=== PATIENT | female | born 1995 | race Caucasian/White ===

== ENCOUNTER 2017-06-05 02:14 | Inpatient (IN) | payer OTHER ==
[2017-06-05 02:43] VITALS: BMI 21.7
[2017-06-05] MEDS ORDERED: Promethazine HCl 25 MG/ML VIAL IM PRN (02:56)
[2017-06-05] MEDS ORDERED: Zolpidem Tartrate 5 MG TAB PO PRN (02:56)
[2017-06-05] MEDS ORDERED: Acetaminophen 500 MG TAB PO PRN (02:56)
[2017-06-05] MEDS ORDERED: Diabetic Tussin 200 MG/10 ML UDCUP PO PRN (03:12)
--- NOTE | 2017-06-05 03:16 | PDOC.LDHP ---
Labor and Delivery H&P Chief complaint: loss of fluid HPI: 21 y/o at 30w1d, patient of Dr. Garza, presents with large gush and continuing leakage of fluid starting at 0130. Denies VB, ctx, or decreased FM. Has had a cold with a cough but is not SOB. ROS neg for HEENT, CV, pulm, GI, , neuro, psych, skin, musculoskeletal, or constitutional symptoms other than mentioned above. OB History Details: 1 prior term in August 2016. Current complications: none Past Medical History: None Current medications: pre- vitamins Previous surgical history: none Allergies/Adverse Reactions: Allergies Allergy/AdvReac Type Severity Reaction Status Date / Time No Known Allergies Allergy Verified 06/05/17 02:35 Social history: none - Physical Exam Vital signs reviewed and normal: yes General: NAD, resting Heart: RRR Lungs: CTAB Abdomen: NTTP Extremeties: no edema FHT: category 2 (130s, mod variability, + accels, occasional variable decels) [place] contractions every: occasional - Vaginal Exam cm dilated: 0 (visually) Effacement: 0% Station: -3 - Assessment L&D Assessment: premature rupture of membranes - Plan Plan: admit to L&D, GBS antibiotic prophylaxis, informed consent obtained -: -Celestone x 2 for lung maturity -GBS prophylaxis - Received Azithromycin (erythromycin unavailable. Amp for 48 hours, then switch to oral Amoxicillin for 5 days. -Magnesium sulfate for neuro protection if threatened labor -Robitussin for cough - ultrasound for EFW, GERMÁN, position -Neonatology consult Expectant management at this time. Dr. Garza notified.
[2017-06-05] MEDS: Betamet Acet/Betamet Na Ph 30 MG/5 ML VIAL IM SCH (03:36)
[2017-06-05] MEDS ORDERED: Azithromycin 250 MG TAB PO SCH (03:45)
[2017-06-05 04:18] LABS: #Eosinphils 0.1 thou/uL (0.0-0.7); #Lymphocytes 1.2 thou/uL (1.20-3.40); #Monocytes 0.5 thou/uL (0.11-0.59); #Neutrophils 4.2 thou/uL (1.40-6.50); %Basophils 0.2 % (0.0-1.0); %Eosinophils 1.2 % (0.0-10.0); %Lymphocytes 20.6 % (21.0-51.0); %Monocytes 7.9 % (0.0-10.0); %Neutrophils 70.1 % (42.0-75.0); Hemoglobin 11.2 g/dL (12.0-16.0); Mean Corpuscular HGB CONC 32.9 g/dL (32.0-36.0); Mean Corpuscular Hemoglobin 30.2 pg (27.0-31.0); Mean Corpuscular Volume 91.8 fl (81.0-99.0); Mean Platelet Volume 8.5 fL (7.4-10.4); Platelet Count 116 thou/uL (130-400); RBC Distribution Width 11.1 % (11.5-14.5)
[2017-06-05 04:38] LABS: HBSAg Index 0.21 S/CO (0-0.99); Hep B Surf Ag Non-Reactive S/CO (NonReactive); Syphilis Antibody Nonreactive (Nonreactive); Syphilis Antibody Index 0.06 S/CO (<1.00 Non-Reactive)
[2017-06-05] MEDS ORDERED: ERYTHROMYCIN IVPB SCH ×4 (06:00)
[2017-06-05] MEDS: AMPICILLIN SLOW IVP SCH ×3 (06:24→19:14)
[2017-06-05] MEDS: Lactated Ringer's 1,000 ML IV SCH ×2 (07:52→15:55)
--- NOTE | 2017-06-05 09:06 | ULT ---
PRELIMINARY REPORT/[facility]/EMERGENCY AFTER HOURS PROCEDURE: EXAM: US Uterus, Limited EXAM DATE/TIME: Exam ordered 06/05/2017 4:01 AM CLINICAL HISTORY: 21 years old, female; Signs and symptoms; Lmp or gestational age (in weeks): 30wks; Other: Prom; Preg nant TECHNIQUE: Real-time ultrasound of the maternal uterus (limited) with image documentation. COMPARISON: No relevant prior studies available. FINDINGS: Fetus: There is a live intrauterine with estimated gestational age of 29 weeks. Estimated f etal weight is 2 lbs. 10 oz. Please see the final report for complete description of anatomy. Position: The fetus is in breech position. motion is present. Heart rate: heart rate measures approximately 143 beats per minute. Placenta: Normal placenta is seen posteriorly. No abruption. Amniotic fluid: There is decreased amniotic fluid measuring 7.2 cm. IMPRESSION: Amniotic fluid index of 7.2 cm which is somewhat low. Thank you for allowing us to participate in the care of your patient. Dictated and Authenticated by: Rock Valero MD 06/05/2017 6:24 AM Central Time ([place] & [place]) FINAL REPORT EMERGENCY AFTER HOURS STUDY ULTRASOUND OBSTETRICAL COMPLETE: DATE: 06/05/17. TIME: 4:22 a.m. HISTORY: A 21-year-old female in third trimester of , with premature rupture of membranes. FINDINGS: number: kaufman. lie: breech. Maternal cervix: not visualized. Placenta: posterior. No placenta previa. Amniotic fluid volume: 7.2 cm. heart rate: 143 bpm. The following anatomy is visualized, with no evidence of anomalies: Thoracic spine, sacrum, bladder, bilateral kidneys, cervical spine, lumbar spine, 4-chamber heart, st omach, and nose and lips. The rest of the anatomy is not well visualized because of third trimester of . biometry: Head circumference (HC): 27.9 cm 30 w 4 d Biparietal diameter (BPD): 7.4 cm 29 w 6 d Abdominal circumference (AC): 23.8 cm 28 w 1 d Femur length (FL): 5.1 cm 27 w 2 d Average ultrasound age (AUA): 29 w 0 d Estimated date of delivery (SHYANNE): 08/21/2017. Last menstrual period (LMP): 11/06/16 Gestational age by LMP: 30 w 1 d EDC: 08/21/17. Estimated weight (EFW): 1182 g +/- 175 g (2 lb, 10 oz +/- 6 oz). This report agrees with preliminary report by [employer] IMPRESSION: 1. Live third trimester intrauterine gestation. 2. Estimated gestational age of 29 weeks, 0 days. 3. Breech lie. 4. Oligohydramnios: GERMÁN of 7.2 cm. GUILLE Irby POS: [facility]
--- NOTE | 2017-06-05 11:30 | PDOC.APC ---
Antepartum Consult GEOVANNI SUNG is a 21 year old female at [30 1/7] gestational weeks. She presented to L&D this am with rupture of membranes. records are not available for review but reported to have uncomplicated . I was asked by Dr. Pearce to speak with the patient about what to expect if she were to deliver at 30 weeks. She is currently receiving antibiotics for rupture of membranes and celestone for lung maturity. Hep B testing and syphilis testing are negative on admission to the hospital. I spoke with the patient and the father of the baby. I outlined that the timing and mode of delivery is a decision that will be made by the OB service. Once the patient is taken for delivery, the resuscitation team will be present and I outlined the composition of the resuscitation team. The initial focus will be on respiratory stabilization and may include minimal assistance, CPAP or intubation with surfactant administration. I discussed that the patient will need to be admitted to the NICU in an isolette due to temperature instability associated with prematurity. We will then obtain IV access peripheral or umbilical depending on the size and anticipated feeding course of the baby. We discussed that babies are at risk for hypoglycemia. We discussed that babies born are at higher risk for feeding intolerance, infection and jaundice. I discussed that breastmilk is the best nutrition for babies and she is strongly encouraged to pump after delivery. Mother does plans to breastfeed and I discussed the availability of donor milk. We discussed the need for slow increase in enteral feedings for babies that are and that the baby will need IV nutrition as feeding volumes are increased as tolerated. We discussed some of the complications related to prematurity including IVH and ROP. I explained that the duration of hospital stay will be determined on the clinical course of the baby. I outlined the milestones that needed to be achieved to ensure safe discharge home and that they should anticipate the NICU stay to extend until the due date but that some babies go home sooner or later depending on the clinical course. They had the opportunity to ask questions. I encouraged them to contact our service again if additional questions arise. Recommendations: 1. Administration of celestone for lung maturity 2. Consider magnesium for neuroprotection 3. Please obtain HIV testing if records are not available for review Labs: Ante Labs Hep Bs Antigen Non-Reactive S/CO (NonReactive) 06/05/17 03:30
[2017-06-05] MEDS: Guaifenesin DM 100-10/5 ML UDCUP PO PRN (15:52)
[2017-06-06] MEDS: Guaifenesin DM 100-10/5 ML UDCUP PO PRN (00:16)
[2017-06-06] MEDS: AMPICILLIN SLOW IVP SCH ×4 (00:36→19:14)
[2017-06-06] MEDS: Lactated Ringer's 1,000 ML IV SCH ×2 (00:38→08:00)
[2017-06-06] MEDS: Betamet Acet/Betamet Na Ph 30 MG/5 ML VIAL IM SCH (03:30)
[2017-06-06] MEDS ORDERED: Lactated Ringer's 1,000 ML IV SCH (10:28)
--- NOTE | 2017-06-06 10:32 | PDOC.LDPN ---
Labor & Delivery Progress Note - Subjective Subjective: comfortable, no concerns (No abd pain, ctx, VB. +lof pink tinged. Good FM. No fever/chills) - Objective Vital signs reviewed and normal: yes General: NAD Uterine fundus: non tender FHT: category 1 [place] contractions every: none - Assessment (1) premature rupture of membranes, antepartum Code(s): O42.919 - PRETRM LAURO ROM, UNSP TIME BETW RUPT AND ONST LABR, UNSP TRI Current Visit: Yes Status: Acute (2) 30 weeks gestation of Code(s): Z3A.30 - 30 WEEKS GESTATION OF Current Visit: Yes Status : Acute -: PPROM Day #2 at 30w gestation Cont Amp/Azithro, transition to po abx in am tomorrow. No e/o IAI, PTL or abruption Breech presentation- for PCS if delivery indicated. Monitor for e/o cord prolapse Q shift NST- Cat 1, will need weekly surveillance with BPP EFW 1182gm s/p BMZ x 2 and esperanza consult. If delivery indicated prior to 32wk will need [facility] for EXERCISE MANAGER. Reg diet, Bedrest w/ BR privileges, ok to shower daily. T&S to be kept current. KVO IVF, regular diet SCD for DVT ppx Transfer to floor tomorrow if stable.
[2017-06-06 15:38] LABS: HIV (1/2) Antibody/Antigen Non-Reactive (NonReactive); HIV 1/2 INDEX 0.24 S/CO (<1.00)
[2017-06-06] MEDS: Acetaminophen 500 MG TAB PO PRN (16:14)
[2017-06-06 21:31] LABS: Chlamydia by PCR Not Detected (NotDetected); GC by PCR Not Detected (NotDetected)
[2017-06-07] MEDS: AMPICILLIN SLOW IVP SCH ×2 (00:41→07:34)
[2017-06-07] MEDS ORDERED: Erythromycin Base 250 MG TAB PO SCH (06:00)
--- NOTE | 2017-06-07 08:32 | ULT ---
BIOPHYSICAL PROFILE: FINDINGS: There is a single viable intrauterine which is in a breech presentation. The placenta appea rs to be more left sided. I do not see a definite previa. heart rate is 133 beats/minute. biophysical profiles scores as follows: tone 2 breathing 2 movements 2 Amniotic fluid 0 IMPRESSION: biophysical profile is 6/8. POS: [facility]
[2017-06-07] MEDS: AMOXicillin 250 MG CAP PO SCH ×3 (09:18→21:38)
[2017-06-07] MEDS ORDERED: Docusate Calcium (SURFAK) 240 MG CAP PO PRN (09:25)
--- NOTE | 2017-06-07 09:30 | PDOC.LDPN ---
Labor & Delivery Progress Note - Subjective Subjective: loss of fluid (pink tinged), no concerns - Objective Vital signs reviewed and normal: yes General: NAD Uterine fundus: non tender FHT: category 1 [place] contractions every: none - Assessment (1) premature rupture of membranes, antepartum Code(s): O42.919 - PRETRM LAURO ROM, UNSP TIME BETW RUPT AND ONST LABR, UNSP TRI Current Visit: Yes Status: Acute (2) 30 weeks gestation of Code(s): Z3A.30 - 30 WEEKS GESTATION OF Current Visit: Yes Status : Acute -: PPROM Day #3 at 30wk gestation, no e/o IAI PTL or abruption. s/p BMZ x 2 and esperanza consult Breech- for PCS if delivery indicated BPP 8/10 -2 for GERMÁN, reassured pt status is reassuring GBS neg Transitioned to po abx. Transfer to floor. Cont q shift monitoring and twice weekly BPPs.
[2017-06-08] MEDS: AMOXicillin 250 MG CAP PO SCH (10:07)
[2017-06-08] MEDS: Prenatal Vitamin 1 TAB PO SCH (10:07)
--- NOTE | 2017-06-08 13:53 | PRG ---
DATE OF SERVICE: 06/08/2017 TIME OF VISIT: 0745 and 1300 SUBJECTIVE: The patient reports good movement. She is still having slight leakage of fluid th at is clear. Overnight, the leakage of fluid was pink tinged and she began having some contractions last night. She also noted last night decreased movement, but this has improved over the cours e of today. She has eaten a good breakfast and denies any vaginal bleeding or painful contractions. No fever or chills. OBJECTIVE: VITAL SIGNS: T-max is 98.4, pulse is 69, respirations 18, blood pressure 113/59. GENERAL: No acute distress. CARDIAC: Regular rate and rhythm. LUNGS: Clear to auscultation bilaterally. ABDOMEN: Soft, nontender, and gravid. EXTREMITIES: No edema, cyanosis, or clubbing. External monitor at 12 noon today showed a baseline of 140, moderate beat to beat variability, no accelerations. There are 2 deep variable decelerations down to the 80s at 1203 and 1235 over a 47 -minute period. ASSESSMENT AND PLAN: This is a 21-year-old at 30 weeks and 4 days with PPROM day 4. No eviden ce of IAI or abruption or labor. Monitoring at noon today shows no contractions. I am hanane rned about the variable decelertations on her NST today and therefore we will move her to Labor and D elivery for prolonged monitoring to determine frequency or repetitiveness and any other evidence of n onreassuring status. Yesterday, she had a BPP that was 8/10 and the GERMÁN was 0.5. The patient' s fetus remains in breech presentation and she will be for primary . She is on p.o. latency antibiotics and GBS negative.
[2017-06-09] MEDS: AMOXicillin 250 MG CAP PO SCH ×5 (01:52→20:44)
[2017-06-09] MEDS ORDERED: Lactated Ringer's 1,000 ML IV SCH ×2 (06:15→08:15)
[2017-06-09] MEDS: Acetaminophen 500 MG TAB PO PRN (09:17)
[2017-06-09] MEDS: Prenatal Vitamin 1 TAB PO SCH (09:19)
--- NOTE | 2017-06-09 10:47 | ULT ---
ULTRASOUND BIOPHYSICAL PROFILE: DATE: 06/09/17. HISTORY: A 21-year-old female with premature rupture of membranes during third trimester. FINDINGS: breathin. tone: 2. movement: 2. Amniotic fluid volume: 2. The GERMÁN is 5.5 cm, but there is a single 2 x 2 cm pocket of fluid, yielding an amniotic fluid volume score of 2. Breech lie. heart rate: 143 b.p.m. Placenta: posterofundal. IMPRESSION: 1. Normal biophysical profile score of 8/8, excluding the non-stress test. 2. Oligohydramnios. dat [] POS: [facility]
--- NOTE | 2017-06-09 15:24 | PDOC.LDPN ---
Labor & Delivery Progress Note - Subjective Subjective: no concerns, other (no vb, lof clear. No abd pain or chills/fever. Good fM) - Objective Vital signs reviewed and normal: yes General: NAD Uterine fundus: non tender FHT: category 1 [place] contractions every: rare - Assessment (1) premature rupture of membranes, antepartum Code(s): O42.919 - PRETRM LAURO ROM, UNSP TIME BETW RUPT AND ONST LABR, UNSP TRI Current Visit: Yes Status: Acute (2) 30 weeks gestation of Code(s): Z3A.30 - 30 WEEKS GESTATION OF Current Visit: Yes Status : Acute -: PPROM Day #5, latency abx day #5, no signs of IAI, PTL abruption. Moved to L&D yesterday for variables on NST, resolved with IVF, and Cat 1 tracing overnight. This am having incr in painful ctx and was monitored all day on L&D. Pt reports ctx have resolved and none currently. OK to transfer to floor with q shift NST and twice weekly BPP, BPP today 01/10, GERMÁN 5.5.
--- NOTE | 2017-06-10 07:36 | PDOC.LDPN ---
Labor & Delivery Progress Note - Objective Vital signs reviewed and normal: yes General: NAD, resting Uterine fundus: non tender - Assessment (1) 30 weeks gestation of Code(s): Z3A.30 - 30 WEEKS GESTATION OF Current Visit: Yes Status : Acute (2) premature rupture of membranes, antepartum Code(s): O42.919 - PRETRM LAURO ROM, UNSP TIME BETW RUPT AND ONST LABR, UNSP TRI Current Visit: Yes Status: Acute Plan: continue plan of care (Patinet on day 6 of latency antibiotics. Continue ABX until tomorrow (antibiotics day 7). No evidence IAI at this time. Some irregular ctx reported. If labors under 32 weeks, will need MgSo4 for neuroprotection. Steroids already given.)
[2017-06-10] MEDS: Prenatal Vitamin 1 TAB PO SCH (08:58)
[2017-06-10] MEDS: AMOXicillin 250 MG CAP PO SCH ×3 (08:58→20:45)
--- NOTE | 2017-06-11 07:28 | PRG ---
DATE OF SERVICE: 06/11/2017 TIME OF SERVICE: 0715 SUBJECTIVE: Patient is resting comfortably. She has no complaints. She said that she only has occa sional mild contractions. She reports an active fetus. PHYSICAL EXAMINATION: VITAL SIGNS: Reviewed and stable. No evidence of chorioamnionitis. ABDOMEN: Soft and nontender. EXTREMITIES: Without clubbing, cyanosis or edema. heart rate tracing: NST performed during the day had a one very short variable deceleration, o therwise was category 1, with positive accelerations, no decelerations and no significant contraction s noted. IMPRESSION: A 30 weeks gestation with premature rupture of membranes and breech presentation . PLAN: A day #7 of antibiotics, status post premature rupture of membranes concludes today. We will continue to monitor the patient as planned with expected management. The patient has already received corticosteroids. If patient labors in the near term, we will administer magnesiu m for nerve protection and to proceed with primary section for breech presentation.
[2017-06-11] MEDS: Prenatal Vitamin 1 TAB PO SCH (09:23)
[2017-06-11] MEDS: AMOXicillin 250 MG CAP PO SCH ×3 (09:23→21:05)
--- NOTE | 2017-06-12 08:14 | PDOC.LDPN ---
Labor & Delivery Progress Note - Subjective Subjective: comfortable, no concerns (still with LOF, yellow tinged. Some painful ctx, < 1/hr) - Objective Vital signs reviewed and normal: yes General: NAD Uterine fundus: non tender FHT: category 1 - Assessment (1) premature rupture of membranes, antepartum Code(s): O42.919 - PRETRM LAURO ROM, UNSP TIME BETW RUPT AND ONST LABR, UNSP TRI Current Visit: Yes Status: Acute (2) 30 weeks gestation of Code(s): Z3A.30 - 30 WEEKS GESTATION OF Current Visit: No Status: Acute (3) 31 weeks gestation of Code(s): Z3A.31 - 31 WEEKS GESTATION OF Current Visit: Yes Status : Acute (4) Breech presentation with problem Code(s): O32.1XX0 - MATERNAL CARE FOR BREECH PRESENTATION, UNSP Current Visit : Yes Status: Acute Qualifiers: Fetus number: single or unspecified fetus Qualified Code(s): O32.1XX0 - Maternal care for breech presentation, not applicable or unspecified -: PPROM Day 8, s/p latency abx. No signs of IAI, PTL abruption. s/p BMZ and esperanza consult, Mag for PRACTICE COORDINATOR until 32wk Q shift NST Cat 1, BPP today/twice weekly Cont current care.
--- NOTE | 2017-06-12 09:26 | ULT ---
BIOPHYSICAL PROFILE ULTRASOUND EXAMINATION: Date: 06-12-17 History: Pre-mature rupture of membrane. 31-week gestation. FINDINGS: There is a single intrauterine gestation in breech presentation. Cardiac doppler demonstrates h eart tones with a heart rate of 128 beats/minute. The cervical is not well visualized due to sh adowing. The placenta is located anteriorly. Images of the lower uterine segment demonstrate no evide nce of placenta previa. There is a decreased amount of amniotic fluid with an amniotic fluid index of 3.2 cm. A score of 2 each was obtained for tone, breathing, and movements. A score of 0 was obtained for amniotic fluid volume. Amniotic fluid index on prior study of 06-09-17 was 5.7 cm, as noted above, this has diminished to 3.2 cm. IMPRESSION: 1. Oligohydramnios. 2. biophysical profile score of 6 out of 8. 3. Intrauterine gestation in breech presentation. 4. Above findings were discussed with Britta Caballero, labor and delivery nurse, at the termination o f this examination by flying shear operator on 06-12-17. POS: [facility]
[2017-06-12] MEDS: Prenatal Vitamin 1 TAB PO SCH (10:26)
[2017-06-13] MEDS: Acetaminophen 500 MG TAB PO PRN (04:30)
[2017-06-13] MEDS: Prenatal Vitamin 1 TAB PO SCH (10:31)
--- NOTE | 2017-06-13 17:15 | PDOC.LDPN ---
Labor & Delivery Progress Note - Subjective Subjective: comfortable, other (some painful ctx overnight. good fm) - Objective Vital signs reviewed and normal: yes General: NAD Uterine fundus: non tender FHT: category 1 [place] contractions every: none AROM: meconium stained fluid - Assessment (1) premature rupture of membranes, antepartum Code(s): O42.919 - PRETRM LAURO ROM, UNSP TIME BETW RUPT AND ONST LABR, UNSP TRI Current Visit: Yes Status: Acute (2) 30 weeks gestation of Code(s): Z3A.30 - 30 WEEKS GESTATION OF Current Visit: No Status: Acute (3) 31 weeks gestation of Code(s): Z3A.31 - 31 WEEKS GESTATION OF Current Visit: Yes Status : Acute (4) Breech presentation with problem Code(s): O32.1XX0 - MATERNAL CARE FOR BREECH PRESENTATION, UNSP Current Visit : Yes Status: Acute Qualifiers: Fetus number: single or unspecified fetus Qualified Code(s): O32.1XX0 - Maternal care for breech presentation, not applicable or unspecified -: VSSAF Stable PPROM Day #9, s/p abx, no sx IAI PTL abruption. Plan PCS if still breech on 07/03 unless earlier indicated. Cont inpt bedrest care and q shift NST , twice weekly BPP. Will get JEAN on BPP monday.
[2017-06-14] MEDS: Lactated Ringer's 1,000 ML IV SCH (08:30)
[2017-06-14 09:07] LABS: #Eosinphils 0.1 thou/uL (0.0-0.7); #Lymphocytes 2.1 thou/uL (1.20-3.40); #Monocytes 0.7 thou/uL (0.11-0.59); #Neutrophils 7.3 thou/uL (1.40-6.50); %Basophils 0.3 % (0.0-1.0); %Eosinophils 0.8 % (0.0-10.0); %Lymphocytes 20.9 % (21.0-51.0); %Monocytes 6.4 % (0.0-10.0); %Neutrophils 71.6 % (42.0-75.0); Hemoglobin 12.3 g/dL (12.0-16.0); Mean Corpuscular Hemoglobin 31.1 pg (27.0-31.0); Mean Corpuscular Volume 91.4 fl (81.0-99.0); Mean Platelet Volume 9.5 fL (7.4-10.4); Platelet Count 140 thou/uL (130-400); RBC Distribution Width 11.5 % (11.5-14.5); Red Blood Cell (RBC) Count 3.94 mill/uL (4.20-5.40); White Blood Cell (WBC) Count 10.2 thou/uL (4.8-10.8)
[2017-06-14] MEDS: Prenatal Vitamin 1 TAB PO SCH (11:06)
--- NOTE | 2017-06-14 14:14 | PDOC.LDPN ---
Labor & Delivery Progress Note - Subjective Subjective: other (some sharp lower abdominal pain, improved since this morning after starting IVF. Good FM. Had large amount of meconium passage on pad this am, scant green discharge now. ) - Objective Vital signs reviewed and normal: yes (afebrile) General: NAD Uterine fundus: non tender FHT: category 1 [place] contractions every: none - Assessment (1) premature rupture of membranes, antepartum Code(s): O42.919 - PRETRM LAURO ROM, UNSP TIME BETW RUPT AND ONST LABR, UNSP TRI Current Visit: Yes Status: Acute (2) 30 weeks gestation of Code(s): Z3A.30 - 30 WEEKS GESTATION OF Current Visit: No Status: Acute (3) 31 weeks gestation of Code(s): Z3A.31 - 31 WEEKS GESTATION OF Current Visit: Yes Status : Acute (4) Breech presentation with problem Code(s): O32.1XX0 - MATERNAL CARE FOR BREECH PRESENTATION, UNSP Current Visit : Yes Status: Acute Qualifiers: Fetus number: single or unspecified fetus Qualified Code(s): O32.1XX0 - Maternal care for breech presentation, not applicable or unspecified -: PPROM Day #10, s/p latency abx No e/o IAI, WBC wnl, afebrile, no fundal tenderness, meconium passage today however status reassuring on prolonged monitoring. Intermittent ctx but not regular, monitor and will start IVF if present. HLIV now. Breech- for PCS s/p BMZ, for Mag for MANAGER ETL up until 32 w if delivery indicated Ok for reg diet, q shift monitoring, cont current care.
[2017-06-14] MEDS ORDERED: Lactated Ringer's 500 ML IV SCH ×2 (14:30→16:30)
--- NOTE | 2017-06-15 08:05 | PDOC.LDPN ---
Labor & Delivery Progress Note - Subjective Subjective: loss of fluid (yellow, no further meconium passage, continues to have ctx, not too painful) - Objective Vital signs reviewed and normal: yes (afebrile) General: NAD Uterine fundus: non tender FHT: category 1 [place] contractions every: q 5min - Assessment (1) premature rupture of membranes, antepartum Code(s): O42.919 - PRETRM LAURO ROM, UNSP TIME BETW RUPT AND ONST LABR, UNSP TRI Current Visit: Yes Status: Acute (2) 30 weeks gestation of Code(s): Z3A.30 - 30 WEEKS GESTATION OF Current Visit: No Status: Acute (3) 31 weeks gestation of Code(s): Z3A.31 - 31 WEEKS GESTATION OF Current Visit: Yes Status : Acute (4) Breech presentation with problem Code(s): O32.1XX0 - MATERNAL CARE FOR BREECH PRESENTATION, UNSP Current Visit : Yes Status: Acute Qualifiers: Fetus number: single or unspecified fetus Qualified Code(s): O32.1XX0 - Maternal care for breech presentation, not applicable or unspecified -: at 31w4d PPROM Day #11, no signs of IAI, PTL or abruption, s/p latency abx s/p BMZ and esperanza consult, will give rescue course of BMZ if makes it 14D after first round (06/19/16) Breech for PCS Plan on delivery at 34w, 07/03 unless delivery indicated earlier FHT Cat 1 on NST, will get sono for BPP and weigh tomorrow Cont current care.
[2017-06-15] MEDS: Prenatal Vitamin 1 TAB PO SCH (08:47)
[2017-06-15] MEDS: Lactated Ringer's 1,000 ML IV SCH (19:50)
[2017-06-16] MEDS: Lactated Ringer's 1,000 ML IV SCH (02:58)
--- NOTE | 2017-06-16 07:26 | PDOC.LDPN ---
Labor & Delivery Progress Note - Subjective Subjective: no concerns (sm amt of LOF clear, ctx have subsided, good FM) - Objective Vital signs reviewed and normal: yes General: NAD Uterine fundus: non tender FHT: category 1 [place] contractions every: none - Assessment (1) premature rupture of membranes, antepartum Code(s): O42.919 - PRETRM LAURO ROM, UNSP TIME BETW RUPT AND ONST LABR, UNSP TRI Current Visit: Yes Status: Acute (2) 30 weeks gestation of Code(s): Z3A.30 - 30 WEEKS GESTATION OF Current Visit: No Status: Acute (3) 31 weeks gestation of Code(s): Z3A.31 - 31 WEEKS GESTATION OF Current Visit: Yes Status : Acute (4) Breech presentation with problem Code(s): O32.1XX0 - MATERNAL CARE FOR BREECH PRESENTATION, UNSP Current Visit : Yes Status: Acute Qualifiers: Fetus number: single or unspecified fetus Qualified Code(s): O32.1XX0 - Maternal care for breech presentation, not applicable or unspecified -: at 31w5d PPROM Day #12 s/p latency abx, no e/o IAI PTL abruption EFW 1330gm = 29w5d, < 10%ile however accurate weight is difficult with oligohydramnios so more room for error. BPP 8/10, -2 for GERMÁN, status reassuring. SD ratio slightly elevated on sono images however cord sampling location incorrect, will repeat these on Monday with [facility] electro tech. NST Cat 1 will cont q shift as long as reactive and no decels and twice weekly BPPs. Cont APU care.
[2017-06-16] MEDS: Prenatal Vitamin 1 TAB PO SCH (09:21)
--- NOTE | 2017-06-16 11:56 | ULT ---
OB ULTRASOUND AND BIOPHYSICAL PROFILE: HISTORY: Premature rupture of membranes. TECHNIQUE: Multiplanar mistry-scale and color Doppler images were obtained in a transabdominal ultrasound. FINDINGS: There is a single live intrauterine with a heart rate of 139 BPM. GERMÁN is 2.2 cm, which is low. The estimated age of the fetus, based off today's examination, is 29 weeks and 5 days. Estimat ed weight is 1333 g. The following measurements were taken and dates based off these measureme nts are as follows: BPD: 7.43 cm (29 weeks and 6 days) HC: 28.34 cm (31 weeks and 1 day) AC: 24.10 cm (28 weeks and 3 days) FL: 5.59 cm (29 weeks and 3 days) A biophysical profile was performed. The fetus scored 6/8, with a 0 for amniotic fluid volume. The fetus is in a breech presentation. The placenta is fundal in location without evidence of placenta p revia. IMPRESSION: 1. Single live intrauterine with an estimated age of 29 weeks and 5 days. 2. Biophysical profile score 6/8. POS: [facility]
[2017-06-17 09:31] LABS: #Basophils 0.1 thou/uL (0.0-0.2); #Eosinphils 0.1 thou/uL (0.0-0.7); #Lymphocytes 1.8 thou/uL (1.20-3.40); #Monocytes 0.5 thou/uL (0.11-0.59); %Basophils 0.6 % (0.0-1.0); %Eosinophils 0.8 % (0.0-10.0); %Lymphocytes 17.2 % (21.0-51.0); %Monocytes 5.1 % (0.0-10.0); %Neutrophils 76.4 % (42.0-75.0); Hemoglobin 11.9 g/dL (12.0-16.0); Mean Corpuscular HGB CONC 33.4 g/dL (32.0-36.0); Mean Corpuscular Hemoglobin 30.4 pg (27.0-31.0); Mean Corpuscular Volume 91.2 fl (81.0-99.0); Mean Platelet Volume 8.8 fL (7.4-10.4); Platelet Count 128 thou/uL (130-400); RBC Distribution Width 11.3 % (11.5-14.5); Red Blood Cell (RBC) Count 3.91 mill/uL (4.20-5.40); White Blood Cell (WBC) Count 10.5 thou/uL (4.8-10.8)
[2017-06-17] MEDS: Prenatal Vitamin 1 TAB PO SCH (09:57)
--- NOTE | 2017-06-17 11:04 | PRG ---
DATE OF SERVICE: 06/17/2017 SUBJECTIVE: The patient is 31 weeks and 6 days today with prolonged rupture of membranes. S he reports mild lower abdominal discomfort. Shows small amount of meconium passage per vagina. She reports an active fetus. OBJECTIVE: VITAL SIGNS: The patient remains afebrile. ABDOMEN: Nontender. She has mild discomfort in bilateral lower quadrants, but would not reach the l evel of tenderness of the uterus. Extended BPP yesterday was noted to be 8/10. HEART RATE TRACING: heart tracing is category 1 with baseline of 140s to 150s, positive accelerations, no decels noted. No contractions noted. LABORATORY DATA: Repeat CBC reveals stable white count at approximately 10,000. IMPRESSION: prolonged rupture of membranes with an SGA infant. No evidence of labor . Persistent breech presentation. No evidence of chorioamnionitis at this time. PLAN: Continued inpatient antepartum care with daily monitoring section for maternal indication.
--- NOTE | 2017-06-18 11:09 | PRG ---
DATE OF SERVICE: 06/18/2017 SUBJECTIVE: The patient is 32 weeks and 0 days today with prolonged rupture of membranes. H er complaints are essentially the same as yesterday except for less abdominal discomfort. She report s an active fetus. OBJECTIVE: VITAL SIGNS: Remained stable. The patient remains afebrile. ABDOMEN: Nontender. heart rate tracing category 1 with baseline in the 140s to 150s, positive accelerations, no decelerations noted. LABORATORY DATA: No laboratory performed today, repeat CBC yesterday revealed stable white count at 10,000. IMPRESSION: prolonged rupture of membranes, small for gestational age 32 weeks and 0 day, no evidence of labor with persistent breech presentation. PLAN: Continue inpatient antepartum care, section for labor or other maternal indicat ion.
[2017-06-18] MEDS: Prenatal Vitamin 1 TAB PO SCH (11:12)
[2017-06-19] MEDS: Prenatal Vitamin 1 TAB PO SCH (10:00)
[2017-06-19] MEDS: Betamet Acet/Betamet Na Ph 30 MG/5 ML VIAL IM SCH (18:54)
--- NOTE | 2017-06-19 20:18 | PDOC.LDPN ---
Labor & Delivery Progress Note - Subjective Subjective: other (pt not seen today, sleeping or unavailable after 3 attempts to see pt.) - Objective Vital signs reviewed and normal: yes FHT: category 1 [place] contractions every: q 10min - Assessment (1) premature rupture of membranes, antepartum Code(s): O42.919 - PRETRM LAURO ROM, UNSP TIME BETW RUPT AND ONST LABR, UNSP TRI Current Visit: Yes Status: Acute (2) 30 weeks gestation of Code(s): Z3A.30 - 30 WEEKS GESTATION OF Current Visit: No Status: Resolved (3) 31 weeks gestation of Code(s): Z3A.31 - 31 WEEKS GESTATION OF Current Visit: Yes Status : Resolved (4) Breech presentation with problem Code(s): O32.1XX0 - MATERNAL CARE FOR BREECH PRESENTATION, UNSP Current Visit : Yes Status: Acute Qualifiers: Fetus number: single or unspecified fetus Qualified Code(s): O32.1XX0 - Maternal care for breech presentation, not applicable or unspecified (5) 32 weeks gestation of Code(s): Z3A.32 - 32 WEEKS GESTATION OF Current Visit: Yes Status : Acute -: PPROM Day #15, s/p latency abx, no e/o IAI, PTL or abruption. Per nursing contractions nonpainful. Plan rescue course steroids today/tomorrow BPP tomorrow, cont q shift NST, Cat 1 Breech planned CS 07/03 unless indicated earlier. Cont APU care.
--- NOTE | 2017-06-20 07:09 | PDOC.LDPN ---
Labor & Delivery Progress Note - Subjective Subjective: painful contractions (pt reports incr in painful ctx overnight, kept her awake for about 1 hour, q 10 min, 5/10 on pain scale), loss of fluid ( clear), other (having a constant abdominal pain radiating to vaginal area, started last night, worse with sitting up.) - Objective Vital signs reviewed and normal: yes General: NAD Uterine fundus: tender to palpation (slight tenderness over uterus) FHT: category 1 [place] contractions every: q7-10min Other exam findings: SSE visibly 1 cm, clear LOF - Assessment (1) premature rupture of membranes, antepartum Code(s): O42.919 - PRETRM LAURO ROM, UNSP TIME BETW RUPT AND ONST LABR, UNSP TRI Current Visit: Yes Status: Acute (2) Breech presentation with problem Code(s): O32.1XX0 - MATERNAL CARE FOR BREECH PRESENTATION, UNSP Current Visit : Yes Status: Acute Qualifiers: Fetus number: single or unspecified fetus Qualified Code(s): O32.1XX0 - Maternal care for breech presentation, not applicable or unspecified (3) 32 weeks gestation of Code(s): Z3A.32 - 32 WEEKS GESTATION OF Current Visit: Yes Status : Acute -: VSSAF Abd pain- possible brewing chorio but no clear signs at this point to definitively diagnose chorio. WBC slightly elevated from before however this could be due to stress or steroid administration as well. Will await clear signs of chorio such as exquisite fundal tenderness, purulent drainage or fever. PtCx- not in PTL, will give IVF and prn pain meds. Reassured pt that she is only vis 1 cm on exam. NST Cat 1, BPP 8/10, -2 for GERMÁN. Breech Cont APU care.
[2017-06-20] MEDS: Acetaminophen 500 MG TAB PO PRN ×2 (08:26→14:52)
[2017-06-20 08:50] LABS: #Eosinphils 0.1 thou/uL (0.0-0.7); #Lymphocytes 0.8 thou/uL (1.20-3.40); #Monocytes 0.4 thou/uL (0.11-0.59); #Neutrophils 12.7 thou/uL (1.40-6.50); %Eosinophils 0.4 % (0.0-10.0); %Lymphocytes 5.8 % (21.0-51.0); %Monocytes 2.9 % (0.0-10.0); %Neutrophils 90.9 % (42.0-75.0); Hemoglobin 12.1 g/dL (12.0-16.0); Mean Corpuscular Hemoglobin 30.8 pg (27.0-31.0); Mean Corpuscular Volume 90.6 fl (81.0-99.0); Mean Platelet Volume 9.4 fL (7.4-10.4); Platelet Count 113 thou/uL (130-400); RBC Distribution Width 11.2 % (11.5-14.5); Red Blood Cell (RBC) Count 3.92 mill/uL (4.20-5.40)
[2017-06-20] MEDS: Prenatal Vitamin 1 TAB PO SCH (09:15)
--- NOTE | 2017-06-20 11:15 | ULT ---
BIOPHYSICAL PROFILE: DATE: 06/20/17. COMPARISON: 06/16/17. HISTORY: Premature rupture of membranes at 32 weeks. TECHNIQUE: Multiplanar, mistry scale, sonographic imaging of the gravid uterus is obtained. FINDINGS: Limited sonographic assessment of the gravid uterus demonstrates a single intrauterine gestation with a heart rate of 150 b.p.m. There is a very low amount of amniotic fluid with an GERMÁN of approx imately 3.7 cm. This limits assessment of the fetus. The chair post machine operator reports a breech presentation. tone, breathing, and movements scored 2 out of 2. Amniotic fluid score is 0 out of 2 for a biophysical profile score of 6 out of 8. This is a stable biophysical profile score when co mpared to the 06/16/17 exam. IMPRESSION: Six out of 8 biophysical profile. Oligohydramnios, a stable finding. No significant interval change . POS: [facility]
[2017-06-20] MEDS: Lactated Ringer's 1,000 ML IV SCH ×3 (12:16→19:10)
[2017-06-20] MEDS: Betamet Acet/Betamet Na Ph 30 MG/5 ML VIAL IM SCH (18:59)
[2017-06-20] MEDS ORDERED: Lactated Ringer's 1,000 ML IV SCH (21:15)
[2017-06-21] MEDS: Lactated Ringer's 1,000 ML IV SCH ×3 (03:20→12:51)
[2017-06-21 06:03] LABS: #Lymphocytes 0.7 thou/uL (1.20-3.40); #Monocytes 0.4 thou/uL (0.11-0.59); %Eosinophils 0.2 % (0.0-10.0); %Monocytes 3.4 % (0.0-10.0); %Neutrophils 89.4 % (42.0-75.0); Hemoglobin 11.1 g/dL (12.0-16.0); Mean Corpuscular HGB CONC 33.7 g/dL (32.0-36.0); Mean Corpuscular Hemoglobin 30.8 pg (27.0-31.0); Mean Corpuscular Volume 91.3 fl (81.0-99.0); Mean Platelet Volume 10.4 fL (7.4-10.4); Platelet Count 103 thou/uL (130-400); RBC Distribution Width 11.6 % (11.5-14.5); Red Blood Cell (RBC) Count 3.61 mill/uL (4.20-5.40)
[2017-06-21] MEDS: Prenatal Vitamin 1 TAB PO SCH ×2 (08:56→11:23)
--- NOTE | 2017-06-21 09:36 | PDOC.LDPN ---
Labor & Delivery Progress Note - Subjective Subjective: painful contractions (8/10 q 5min, couldn't sleep through them, worse than ever. constant back pressure), loss of fluid (clear, scant) - Objective Vital signs reviewed and normal: yes General: NAD Uterine fundus: tender to palpation (mild over fundus) FHT: category 1 [place] contractions every: q4-7min - Assessment (1) premature rupture of membranes, antepartum Code(s): O42.919 - PRETRM LAURO ROM, UNSP TIME BETW RUPT AND ONST LABR, UNSP TRI Current Visit: Yes Status: Acute (2) Breech presentation with problem Code(s): O32.1XX0 - MATERNAL CARE FOR BREECH PRESENTATION, UNSP Current Visit : Yes Status: Acute Qualifiers: Fetus number: single or unspecified fetus Qualified Code(s): O32.1XX0 - Maternal care for breech presentation, not applicable or unspecified (3) 32 weeks gestation of Code(s): Z3A.32 - 32 WEEKS GESTATION OF Current Visit: Yes Status : Acute -: PPROM Day 17, increase in painful contractions, possibly PTL. Will make NPO, cont IVF (has been running since yesterday), prn stadol for pain. If cont to contract through lunch will perform SSE for cervix eval. No e/o distress or IAI. CBC stable. Low platelets, c/w gestational thrombocytopenia. No e/o PIH. afebrile. Cont monitoring, T&S. Poss for PCS today if SVE change. s/p rescue course BMZ.
[2017-06-21 10:07] LABS: INR-International Normal Ratio 0.9; PTT 25.2 SEC (22.9-36.1); Prothrombin Time 12.3 SEC (12.0-14.7)
[2017-06-21 10:19] LABS: Hemoglobin 11.2 g/dL (12.0-16.0); Mean Corpuscular HGB CONC 34.4 g/dL (32.0-36.0); Mean Corpuscular Hemoglobin 31.3 pg (27.0-31.0); Mean Platelet Volume 9.5 fL (7.4-10.4); Platelet Count 101 thou/uL (130-400); RBC Distribution Width 11.4 % (11.5-14.5); Red Blood Cell (RBC) Count 3.59 mill/uL (4.20-5.40); White Blood Cell (WBC) Count 10.2 thou/uL (4.8-10.8)
[2017-06-21 10:23] LABS: ALT (SGPT) 19 U/L (8-55); AST (SGOT) 16 U/L (5-34); Albumin 3.4 g/dL (3.5-5.0); Alkaline Phosphatase 112 U/L (40-150); Bilirubin, Direct 0.1 mg/dL (0.1-0.3); Bilirubin, Total 0.2 mg/dL (0.2-1.2)
[2017-06-21 10:33] LABS: Band 10 % (5-11); Lymphocytes 6 % (21-51); MDiff Complete? YES; Monocytes 3 % (0-10); Neutrophil 81 % (42-75); PLT Morphology Comment Appears Decreased; RBC Morphology Normal
--- NOTE | 2017-06-21 12:43 | PDOC.LDPN ---
Labor & Delivery Progress Note - Subjective Subjective: painful contractions (continued q 5min 8/10 on pain scale), vaginal pressure - Objective Vital signs reviewed and normal: yes (afebrile) General: NAD Dilation: 4 Effacement: 50% Station: 0 FHT: category 1 [place] contractions every: q3-7min - Assessment (1) premature rupture of membranes, antepartum Code(s): O42.919 - PRETRM LAURO ROM, UNSP TIME BETW RUPT AND ONST LABR, UNSP TRI Current Visit: Yes Status: Acute (2) Breech presentation with problem Code(s): O32.1XX0 - MATERNAL CARE FOR BREECH PRESENTATION, UNSP Current Visit : Yes Status: Acute Qualifiers: Fetus number: single or unspecified fetus Qualified Code(s): O32.1XX0 - Maternal care for breech presentation, not applicable or unspecified (3) 32 weeks gestation of Code(s): Z3A.32 - 32 WEEKS GESTATION OF Current Visit: Yes Status : Acute -: LABOR, Breech presentation. To OR for PCS. No e/o IAI. s/p BMZ x 2 courses. Risks and benefits of surgery discussed. Pt understands and wishes to proceed. T&S current, plt 103, coags wnl.
[2017-06-21] MEDS ORDERED: Bicitra 30 ML UDCUP PO SCH (12:45)
[2017-06-21] MEDS ORDERED: CEFAZOLIN/Water 2 GM/20 ML SYRINGE SLOW IVP SCH (12:45)
[2017-06-21] MEDS ORDERED: Ketorolac Tromethamine 30 MG/ML VIAL ONE ×2 (12:56→14:42)
[2017-06-21] MEDS ORDERED: Morphine PF 1 MG/ML SYR ONE (12:56)
[2017-06-21] MEDS ORDERED: Ondansetron HCl/PF 4 MG/2 ML Vial ONE ×2 (12:56→14:42)
[2017-06-21] MEDS ORDERED: Oxytocin 10 UNITS/ML VIAL ONE (12:56)
[2017-06-21] MEDS ORDERED: ePHEDrine/0.9% NaCl/PF SYRINGE 50 mg/10 ml ONE (13:17)
[2017-06-21] MEDS ORDERED: Promethazine HCl 25 MG SUPP PR PRN (13:31)
[2017-06-21] MEDS ORDERED: Naloxone HCl 0.4 mg/ml Vial IVP PRN ×2 (13:31)
[2017-06-21] MEDS ORDERED: Eucerin (Mineral Oil/Petrolatum,White) 30 gm Jar TOP PRN (13:31)
[2017-06-21] MEDS ORDERED: Naloxone HCl 0.4 mg/ml Vial IV PRN (13:31)
[2017-06-21] MEDS ORDERED: Promethazine HCl 25 MG/ML VIAL IM PRN ×2 (13:31→17:52)
[2017-06-21] MEDS ORDERED: Ondansetron HCl/PF 4 MG/2 ML Vial IVP PRN ×3 (13:31→17:52)
[2017-06-21] MEDS ORDERED: diphenhydrAMINE 50 MG/ML VIAL IVP PRN (13:31)
[2017-06-21] MEDS ORDERED: Midazolam HCl 2 mg/2 ml Vial ONE (13:35)
[2017-06-21] MEDS ORDERED: Communication Order-Pharmacy FS SCH (13:45)
[2017-06-21] MEDS ORDERED: HYDROmorphone 2 MG/ML VIAL SLOW IVP PRN (14:32)
[2017-06-21] MEDS ORDERED: Meperidine HCl/PF 25 MG/ML VIAL ONE ×2 (14:35→15:20)
[2017-06-21] MEDS: Meperidine HCl/PF 25 MG/ML VIAL SLOW IVP PRN ×2 (14:53→15:22)
[2017-06-21] MEDS ORDERED: Morphine 10 MG/ML VIAL SLOW IVP PRN (16:08)
[2017-06-21] MEDS ORDERED: Morphine 10 MG/ML VIAL ONE (16:10)
[2017-06-21] MEDS ORDERED: LR / Pitocin 40 units/1000 ml 1,000 ML ONE (16:34)
--- NOTE | 2017-06-21 17:39 | OP ---
DATE OF OPERATION: 06/21/2017 PREOPERATIVE DIAGNOSES: 1. labor. 2. Intrauterine at 32 weeks and 3 days. 3. premature rupture of membranes since 30 weeks. 4. Breech presentation. POSTOPERATIVE DIAGNOSES: 1. labor. 2. Intrauterine at 32 weeks and 3 days. 3. premature rupture of membranes since 30 weeks. 4. Breech presentation. PROCEDURE: Primary low transverse section via Pfannenstiel skin incision. ANESTHESIA: Spinal. ATTENDING SURGEON: Moni Garza M.D. IMAGING TECH: Gilbert Spence M.D. ESTIMATED BLOOD LOSS: 500 mL COMPLICATIONS: None. PATHOLOGY: Placenta. DRAINS: [place]o catheter. FINDINGS: Male infant, janiya breech presentation, clear amniotic fluid. Apgars and weight are curre ntly pending. Normal uterus, ovaries and tubes bilaterally. OPERATIVE TECHNIQUE: The patient was taken to the operating room where spinal anesthesia was achieve d without difficulty. The patient was prepped and draped in a sterile fashion in the dorsal supine p osition with a leftward tilt. After ensuring adequacy of anesthesia, a Pfannenstiel skin incision wa s made with a knife and carried down to underlying subcutaneous tissue with the Bovie. The fascia wa s nicked in the midline with the Bovie and carried laterally with the Valdez scissors. The superior as pect of the fascia was tented with 2 Kochers and dissected off the rectus bluntly. The inferior aspe ct of the fascia was tented with 2 Kochers and dissected off the rectus with the Mayos. The rectus w ere bluntly divided in the midline. The peritoneum was bluntly entered into and manually extracted. The Jesus O retractor was placed in the lower uterine segment, was incised in transverse fashion an d extended with the Munoz maneuver. The breech was brought to the hysterotomy and delivered atraumati westley with standard maneuvers and flexion of the head. The cord was clamped and infant handed to [facility] team. Cord blood was obtained and the placenta was allowed to spontaneously deliver and se nt for pathology evaluation. Uterus was exteriorized, cleared of all clots and debris and placed macy k into the abdomen. The hysterotomy was repaired with a #1 Monocryl in a running locking fashion. A n additional venous bleeder from the serosa of the superior aspect of the hysterotomy was hemostatic with a [id number] #1 Monocryl suture. Irrigation of the pelvis was performed and suctioned. He mostasis was noted to be excellent. The Jesus O retractor was removed out of the abdomen. The rect us muscles were examined and noted to be hemostatic. The fascia was reapproximated with 0 PDS x2 sut ures with excellent reapproximation. Subcutaneous tissue was irrigated and cauterized of any bleeder s, reapproximated with a 2-0 plain in a running fashion. Skin was closed with 4-0 Monocryl in a subc uticular fashion. Dermabond was applied. The patient tolerated the procedure well. Sponge and need le counts correct x2. She was taken to recovery room in stable condition.
[2017-06-21] MEDS ORDERED: Acetaminophen 325 MG TAB PO PRN (17:52)
[2017-06-21] MEDS ORDERED: Bisacodyl 10 MG SUPP PR PRN (17:52)
[2017-06-21] MEDS ORDERED: Simethicone Chewable 80 MG TAB PO PRN (17:52)
[2017-06-21] MEDS ORDERED: diphenhydrAMINE 25 MG CAP PO PRN (17:52)
[2017-06-21] MEDS ORDERED: Lanolin Ointment 7 GM TUBE TOP PRN (17:52)
[2017-06-21] MEDS: Ibuprofen 800 MG TAB PO SCH ×3 (18:17→22:00)
[2017-06-21] MEDS ORDERED: CEFAZOLIN 2 GM in Sodium Chloride 0.9% 100 ML IVPB SCH (21:00)
[2017-06-21] MEDS ORDERED: Sodium Chloride 0.9% 0 ML ONE (21:56)
[2017-06-21] MEDS: Ferrous Sulfate 325 MG TAB PO SCH (21:57)
[2017-06-21] MEDS: Docusate Calcium (SURFAK) 240 MG CAP PO SCH (21:58)
[2017-06-21] MEDS: CEFAZOLIN/Water 2 GM/20 ML SYRINGE SLOW IVP SCH (21:58)
[2017-06-21] MEDS: Ketorolac Tromethamine 30 MG/ML VIAL IVP PRN (22:03)
[2017-06-22] MEDS: Ketorolac Tromethamine 30 MG/ML VIAL IVP PRN (04:59)
[2017-06-22] MEDS: CEFAZOLIN/Water 2 GM/20 ML SYRINGE SLOW IVP SCH ×2 (04:59→13:00)
[2017-06-22] MEDS: Ibuprofen 800 MG TAB PO SCH ×3 (05:07→21:33)
[2017-06-22 05:55] LABS: Hemoglobin 10.6 g/dL (12.0-16.0); Mean Corpuscular HGB CONC 32.7 g/dL (32.0-36.0); Mean Corpuscular Hemoglobin 29.8 pg (27.0-31.0); Mean Corpuscular Volume 91.2 fl (81.0-99.0); Mean Platelet Volume 9.5 fL (7.4-10.4); Platelet Count 110 thou/uL (130-400); RBC Distribution Width 11.6 % (11.5-14.5); Red Blood Cell (RBC) Count 3.55 mill/uL (4.20-5.40); White Blood Cell (WBC) Count 9.8 thou/uL (4.8-10.8)
--- NOTE | 2017-06-22 07:26 | PDOC.PP ---
Post Progress Note Post Day #: 1 PO intake tolerated: yes Flatus: no Ambulation: no Vital Signs (12 hours) Temp Pulse Resp BP BP 06/22/17 04:40 97.7 F 72 18 103/57 L 06/22/17 00:10 98.2 F 77 14 94/55 L 06/21/17 20:10 98.2 F 84 18 118/60 Weight Weight 135 lb - Physical Examination General: NAD Cardiovascular: RRR Respiratory: non-labored breathing Abdominal: no distention, appropriately TTP Fundus firm & at: umb-2 Skin: CS incision dry & intact Neurological: no gross focal deficits Psychiatric: normal affect Result Diagrams: 06/22/17 05:11 Additional Labs: Post Labs Blood Type O POSITIVE 06/21/17 09:38 Hep Bs Antigen Non-Reactive S/CO (NonReactive) 06/05/17 03:30 (1) premature rupture of membranes, antepartum Code(s): O42.919 - PRETRM LAURO ROM, UNSP TIME BETW RUPT AND ONST LABR, UNSP TRI Status: Acute (2) Breech presentation with problem Code(s): O32.1XX0 - MATERNAL CARE FOR BREECH PRESENTATION, UNSP Status: Acute Qualifiers: Fetus number: single or unspecified fetus Qualified Code(s): O32.1XX0 - Maternal care for breech presentation, not applicable or unspecified (3) 32 weeks gestation of Code(s): Z3A.32 - 32 WEEKS GESTATION OF Status: Acute - Assessment/Plan POD1 from [facility] for breech at 32w due to PTL and PPROM. VSSAF Routine postop advances. Hgb appropriate postop Cont current care, no e/o infection.
[2017-06-22] MEDS: HYDROcodone/Acetaminophen 5/325 mg Tablet PO PRN ×4 (08:32→21:34)
[2017-06-22] MEDS: Prenatal Vitamin 1 TAB PO SCH (09:11)
[2017-06-22] MEDS: Docusate Calcium (SURFAK) 240 MG CAP PO SCH ×2 (09:11→21:34)
[2017-06-22] MEDS: Ferrous Sulfate 325 MG TAB PO SCH ×2 (09:12→21:33)
[2017-06-22] MEDS ORDERED: Sodium Chloride 0.9% 10 ML ONE (12:56)
[2017-06-22] MEDS ORDERED: Sodium Chloride 0.9% 20 ML ONE (21:31)
[2017-06-23] MEDS: CEFAZOLIN/Water 2 GM/20 ML SYRINGE SLOW IVP SCH (00:35)
[2017-06-23] MEDS: Ibuprofen 800 MG TAB PO SCH ×3 (06:42→21:50)
[2017-06-23] MEDS: HYDROcodone/Acetaminophen 5/325 mg Tablet PO PRN ×3 (06:44→18:31)
[2017-06-23] MEDS: Docusate Calcium (SURFAK) 240 MG CAP PO SCH ×2 (09:24→21:50)
[2017-06-23] MEDS: Prenatal Vitamin 1 TAB PO SCH (09:24)
[2017-06-23] MEDS: Ferrous Sulfate 325 MG TAB PO SCH ×2 (10:10→22:21)
--- NOTE | 2017-06-23 21:37 | PDOC.PP ---
Post Progress Note Post Day #: 2 Subjective: pain controlled, no complaints PO intake tolerated: yes Flatus: yes Ambulation: yes Vital Signs (12 hours) Temp Pulse Resp BP BP Pulse Ox 06/23/17 20:25 98.2 F 80 16 132/85 98 06/23/17 12:05 97.7 F 95 16 126/62 Weight Admit Weight 135 lb Weight 135 lb - Physical Examination General: NAD Respiratory: non-labored breathing Abdominal: no distention, appropriately TTP Fundus firm & at: umb-3 Skin: CS incision dry & intact Neurological: no gross focal deficits Psychiatric: normal affect Result Diagrams: 06/22/17 05:11 Additional Labs: Post Labs Blood Type O POSITIVE 06/21/17 09:38 Hep Bs Antigen Non-Reactive S/CO (NonReactive) 06/05/17 03:30 (1) premature rupture of membranes, antepartum Code(s): O42.919 - PRETRM LAURO ROM, UNSP TIME BETW RUPT AND ONST LABR, UNSP TRI Status: Acute (2) Breech presentation with problem Code(s): O32.1XX0 - MATERNAL CARE FOR BREECH PRESENTATION, UNSP Status: Acute Qualifiers: Fetus number: single or unspecified fetus Qualified Code(s): O32.1XX0 - Maternal care for breech presentation, not applicable or unspecified (3) 32 weeks gestation of Code(s): Z3A.32 - 32 WEEKS GESTATION OF Status: Acute - Assessment/Plan POD2 from [facility]CS for breech at 32w with PPROM and PTL. Met all milestones, doing well Baby doing well in NICU Cont current care, desires DC tomorrow.
[2017-06-24] MEDS: HYDROcodone/Acetaminophen 5/325 mg Tablet PO PRN ×3 (02:44→11:45)
[2017-06-24] MEDS: Ibuprofen 800 MG TAB PO SCH (06:18)
[2017-06-24 08:17] VITALS: BP 117/61; TEMP 98.7
[2017-06-24] MEDS: Ferrous Sulfate 325 MG TAB PO SCH (08:19)
[2017-06-24] MEDS: Prenatal Vitamin 1 TAB PO SCH (09:20)
[2017-06-24] MEDS: Docusate Calcium (SURFAK) 240 MG CAP PO SCH (09:20)
[2017-06-24] MEDS ORDERED: Sodium Chloride 0.9% 10 ML ONE (11:08)
--- NOTE | 2017-06-25 10:18 | DIS ---
DATE OF SERVICE: 06/24/2017 DATE OF ADMISSION: 06/05/2017 DATE OF DISCHARGE: 06/24/2017 ADMISSION DIAGNOSES: premature rupture of membranes at 30 weeks 1 day and breech presentatio n. DISCHARGE DIAGNOSES: premature rupture of membranes, status post delivery for breec h. HOSPITAL COURSE: At the time of presentation, Ms. Bautista is a 21-year-old , 30 weeks 1 day, who presented with leakage of fluid and was diagnosed with premature rupture of membranes. S he was admitted, received steroids and antibiotics for latency. She did not require magnesium. Fetu s was noted to be breech. The patient had an uncomplicated antepartum course until the day of delive ry where she began to have more frequent and painful contractions and Dr. Garza made a decision to proceed with primary section. The patient had an uncomplicated operative and postoperative course. She was also discharged to home on postoperative day #3. The patient has adequate pain cont rol and tolerating p.o., voiding, and has normal lochia. She is afebrile and vital signs have been s table. The patient's incision is clean, dry, and intact. She is discharged to home with instructions to follow up in 1-[address] Garza. Should patie nt have heavy bleeding, fever, chills, or drainage from the incision, she should contact Dr. Garza' s office.
== END 2017-06-24 12:25 | disposition home or self-care (01) | DRG 765 ==
LOC: L&D/OP 02:14 → L&D 03:14 → 3SW 06-07 10:46 → L&D 06-08 15:31 → L&D-LIB 06-16 11:53 → 3SW 06-21 16:03
PROVIDERS: ADMIT Student in an Organized Health Care Education/Training Program; ATTEND Student in an Organized Health Care Education/Training Program
PROC: 10D00Z1 Extraction of Products of Conception, Low, Open Approach (ICD-10-PCS; principal; 2017-06-21)
DX: O42.113 Preterm premature rupture of membranes, onset of labor more than 24 hours following rupture, third trimester (principal); O60.14X0 Preterm labor third trimester with preterm delivery third trimester, not applicable or unspecified; O32.1XX0 Maternal care for breech presentation, not applicable or unspecified; Z37.0 Single live birth; Z3A.30 30 weeks gestation of pregnancy
CPT/HCPCS: 36415; 36416; 51702; 59025; 76805; 76816; 76819; 80076; 85025; 85027; 85060; 85610; 85730; 86780; 86850; 86900; 86901; 87070; 87076; 87081; 87205; 87340; 87389; 87480; 87491; 87510; 87591; 87660; 88307; 99285; A4216; J0290; J0595; J0702; J1885; J2175; J2250; J2270; J2274; J2405; J2590